=== PATIENT | female | born 1975 | race Caucasian/White ===

== ENCOUNTER 2019-09-22 16:13 | Emergency (ER) | payer BC, MEDICAID, OTHER ==
[~2019-09-22] VITALS: Ht 170.2 cm; Wt 91.0 kg
[2019-09-22] MEDS ORDERED: DIAZEPAM 5 MG/ML, 2ML ONE (16:43)
[2019-09-22] MEDS ORDERED: SODIUM CHLORIDE FLUSH 10ML SYR IVF ONE (17:00)
[2019-09-22] MEDS ORDERED: DIAZEPAM 5 MG/ML, 10ML VIAL IV ONE ×2 (17:00→18:00)
[2019-09-22] MEDS ORDERED: PROPOFOL 10 MG/ML, 20ML ONE (17:26)
--- NOTE | 2019-09-22 17:33 | NUR ---
Assumed care from William ARELLANO.
[2019-09-22] MEDS ORDERED: DIAZEPAM 5 MG/ML, 2ML IM ONE (17:50)
[2019-09-22] MEDS ORDERED: PROPOFOL 10 MG/ML, 20ML IVPush ONE (18:00)
[2019-09-22] MEDS ORDERED: DIAZEPAM 5 MG TABLET PO ONE (18:00)
--- NOTE | 2019-09-22 18:22 | NUR ---
REPORT FROM ORIN ARELLANO
--- NOTE | 2019-09-22 18:23 | NUR ---
dr cabrera spoke with dr austin
--- NOTE | 2019-09-22 18:50 | NUR ---
PT SLEEPING IN GURNEY WITH FAMILY AT BEDSIDE. EQUAL CHEST RISE AND FALL. ETCO2 28
[2019-09-22 19:55] VITALS: BP 133/80
--- NOTE | 2019-09-22 20:38 | NUR ---
RN returned to bedside, removed supplemental oxygen. Patient maintaining altertness and pulsatile oxygen within normal limits. ED binder technician to bedside, educating on proper crutch use. Patient tolerated well to bathroom. Will discharge after finished toileting.
== END 2019-09-22 21:14 | disposition home or self-care (01) ==
LOC: ED 18:08
DX: S82.842A Displaced bimalleolar fracture of left lower leg, initial encounter for closed fracture (principal); Z72.89 Other problems related to lifestyle; X58.XXXA Exposure to other specified factors, initial encounter; Y93.89 Activity, other specified; Y92.89 Other specified places as the place of occurrence of the external cause; Y99.8 Other external cause status
CPT/HCPCS: 27810; 73590; 73600; 73610; 96374; 96376; 99152; 99153; 99285; J3360; 96375